=== PATIENT | male | born 1965 | race Caucasian/White ===

== ENCOUNTER 2018-08-10 02:10 | Emergency (ER) | payer OTHER ==
[~2018-08-10] VITALS: Ht 182.9 cm; Wt 90.9 kg
[2018-08-10 02:45] VITALS: BP 138/84
[2018-08-10] MEDS ORDERED: IBUPROFEN 800 MG TABLET PO ONE (03:00)
[2018-08-10] MEDS ORDERED: MECLIZINE HCL 25 MG TABLET PO ONE (03:00)
== END 2018-08-10 03:31 | disposition home or self-care (01) ==
LOC: EDSEX 02:10 → EMS 02:10
DX: H93.13 Tinnitus, bilateral (principal); R42 Dizziness and giddiness
CPT/HCPCS: 99283

== ENCOUNTER 2018-08-22 19:55 | Emergency (ER) | payer OTHER ==
[~2018-08-22] VITALS: Ht 182.9 cm; Wt 88.6 kg
[2018-08-22] MEDS ORDERED: SODIUM CHLORIDE 0.9% 1,000 ML IV ONE (21:10)
[2018-08-22] MEDS ORDERED: METOCLOPRAMIDE HCL 5 MG/ML 2 ML VIAL IVP ONE (21:15)
[2018-08-22] MEDS ORDERED: DiphenhydrAMINE HCL 50 MG/ML VIAL IVP ONE (21:15)
[2018-08-22] MEDS ORDERED: MECLIZINE HCL 25 MG TABLET PO ONE (21:30)
[2018-08-22] MEDS ORDERED: LORazepam 1 MG TABLET PO ONE (22:00)
[2018-08-22] MEDS ORDERED: DiphenhydrAMINE HCL 50 MG CAPSULE PO ONE (22:00)
[2018-08-22 23:09] VITALS: BP 144/93
== END 2018-08-22 23:20 | disposition left against medical advice (07) ==
LOC: EMS 19:56
DX: F41.9 Anxiety disorder, unspecified (principal); R51 Headache; F12.90 Cannabis use, unspecified, uncomplicated
CPT/HCPCS: 99283; J2765; J7030